=== PATIENT | female | born 1985 | race Caucasian/White ===

== ENCOUNTER 2017-08-29 13:00 | Emergency (ER) | payer SELFPAY ==
[2017-08-29 13:05] VITALS: BMI 23.8
[2017-08-29] MEDS ORDERED: ACTIDOSE-AQUA ONE (13:07)
[2017-08-29] MEDS ORDERED: ACTIDOSE-AQUA PO ONE (13:18)
[2017-08-29 13:43] LABS: BASOPHILS # (AUTO) 0.1 X10^3/uL (0.0-0.1); BASOPHILS % (AUTO) 0.8 % (0.2-1.0); EOSINOPHILS # (AUTO) 0.3 x10^3/uL (0.0-0.2); EOSINOPHILS % (AUTO) 3.5 % (0.9-2.9); HEMATOCRIT 39.7 % (36.0-47.0); HEMOGLOBIN 13.7 g/dL (12.0-16.0); LYMPHOCYTES # (AUTO) 1.8 X10^3/uL (1.3-2.9); LYMPHOCYTES % (AUTO) 19.3 % (21.0-51.0); MEAN CORPUSCULAR HEMOGLOBIN 30.3 pg (27.0-34.0); MEAN CORPUSCULAR HGB CONC 34.6 g/dL (33.0-35.0); MEAN CORPUSCULAR VOLUME 87.8 fL (80.0-100.0); MEAN PLATELET VOLUME 7.9 fL (7.4-11.0); MONOCYTES # (AUTO) 0.7 x10^3/uL (0.3-0.8); MONOCYTES % (AUTO) 7.1 % (0.0-13.0); NEUTROPHILS # (AUTO) 6.4 x10^3/uL (2.2-4.8); NEUTROPHILS % (AUTO) 69.3 % (42.0-75.0); PLATELET COUNT 294 X10^3/uL (150.0-450.0); RED BLOOD COUNT 4.52 X10^6/uL (3.5-5.4); RED CELL DISTRIBUTION WIDTH 13.8 % (11.6-16.5); WHITE BLOOD COUNT 9.2 X10^3/uL (3.6-10.0)
[2017-08-29 13:54] LABS: ALANINE AMINOTRANSFERASE 54 Units/L (12-78); ALBUMIN 3.5 g/dL (3.4-5.0); ALKALINE PHOSPHATASE 71 Units/L (46-116); ASPARTATE AMINO TRANSFERASE 56 Units/L (15-37); BLOOD UREA NITROGEN 5 mg/dL (7-18); CALCIUM 8.7 mg/dL (8.5-10.1); CARBON DIOXIDE 24.3 mmol/L (21-32); CHLORIDE 103 mmol/L (98-107); COR NA(FOR HYPERGLY) 140 mmol/L (136-145); CREATININE 0.86 mg/dL (0.55-1.02); SODIUM 138 mmol/L (136-145); TOTAL PROTEIN 8.4 g/dL (6.4-8.2); eGFR BLACK RACES > 60 (>60); eGFR NON BLACK RACES > 60 (>60)
[2017-08-29] MEDS ORDERED: NS 1000 ML 1,000 ML ONE ×2 (13:56→15:26)
[2017-08-29 14:03] LABS: HCG,QUANTITATIVE 1 mIU/mL (0-6); SALICYLATE 3.4 mg/dL (2.8-20)
--- NOTE | 2017-08-29 14:13 | RAD ---
Exam: Portable chest 08/29/2017 at 1:55 p.m. History: 32-year-old female with medication over dose Comparison: Previous chest radiograph from 03/29/2016. Findings: Heart size and pulmonary vasculature are normal. Lungs are clear with no infiltrate or sign ificant effusion on either side. Bony thorax is unremarkable as well. Impression: No acute cardiopulmonary abnormality is seen on this exam. Reported By:
--- NOTE | 2017-08-29 14:58 | DR.GENAD ---
HPI - PCP Primary Care Physician: none - Complaint/Symptoms Chief Complaint Doctors Comments: Patient presents to the ED via EMS s/p ingestion of ~20+ clonidine tablets 0.1mg (her ronny medication). She states that she is an addict and IV drug user and is tired, she want to kill herself. She states that yesterday she shot up with emma her drug of choice (easily gotten on streets) She admits to have been in different detox centers several times but always gets suicidal thoughts. She states that she "does not want to be here". She lives with her eight year child and two of her children live with her grandparents. She reports that she has always had thoughts to kill herself since a young child. 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 - Family History History of Family Medical Conditions: No - Social History Does patient currently use any type of tobacco product: Yes Have you used tobacco products in the last 12 months: Yes Type of Tobacco Use: Cigarettes How many years tobacco product used: 10 Does any household member use tobacco: No Alcohol Use: None Do you use any recreational Drugs:: Yes (emma) Lives With: Family Lives Where: Home - infectious screening In the last 2 months have you had wt loss of >10#?: NO Have you had fever, night sweats or hemotysis?: No Have you traveled outside the country in the last 6 months?: No Isolation: Standard ROS - Review of Systems Constitutional: No Symptoms Reported Eyes: No Symptoms Reported ENTM: No Symptoms Reported Respiratoy: No Symptoms Reported Cardiovascular: No Symptoms Reported Gastrointestinal/Abdominal: No Symptoms Reported Genitourinary: No Symptoms Reported Neurological: Depressed Musculoskeletal: No Symptoms Reported Integumentary: No Symptoms Reported Hematologic/Lymphatic: No Symptoms Reported Endocrine: No Symptoms Reported Psychiatric: No Symptoms Reported All Other Systems: Reviewed and Negative PE - Vital Signs Vitals: Temperature 97.8 F Pulse Rate [Right Brachial] 58 Pulse Rate 58 Respiratory Rate 16 Blood Pressure [Right Arm] 132/74 Blood Pressure [Left Arm] 153/79 Blood Pressure 157/97 O2 Sat by Pulse Oximetry 99 - General Limitations: No Limitations General Appearance: Alert - Head Head Exam: Normal Inspection, Atraumatic - Eyes Eye exam: Normal Appearance, PERRL, EOMI - ENT ENT Exam: Normal Exam External Ear Exam: Normal External Inspection TM/Canal Exam: Bilateral Normal Nose Exam: Normal Nose Exam Mouth Exam: Normal Inspection Throat Exam: Normal Inspection - Neck Neck Exam: Normal Inspection - Chest Chest Inspection: Normal Inspection - Respiratory Respiratory Exam: Normal Lung Sounds Bilat Respiratory Exam: Bilateral Clear to Auscultation - Cardiovascular Cardiovascular Exam: Regular Rate, Bradycardia - Abdominal Exam Abdominal Exam: Normal Inspection Abdominal Tenderness: negative: RUQ, RLQ, LUQ, LLQ, Epigastrium, Suprapubic, Diffuse, Mild, Moderate, Severe, Other - Extremities Extremities Exam: Normal Inspection, Full ROM - Back Back Exam: Normal Inspection - Neurologic Neurological Exam: Alert, Oriented X3, CN II-XII Intact - Psychiatric Psychiatric Exam: Normal Affect - Skin Skin Exam: Warm, Dry, Intact Course - Reevaluation 1st: Improved ROR - Labs Reviewed Result Diagrams: 08/29/17 13:31 08/29/17 13:31 Laboratory: WBC 9.2 X10^3/uL (3.6-10.0) 08/29/17 13:31 RBC 4.52 X10^6/uL (3.5-5.4) 08/29/17 13:31 Hgb 13.7 g/dL (12.0-16.0) 08/29/17 13:31 Hct 39.7 % (36.0-47.0) 08/29/17 13:31 MCV 87.8 fL (80.0-100.0) 08/29/17 13:31 MCH 30.3 pg (27.0-34.0) 08/29/17 13:31 MCHC 34.6 g/dL (33.0-35.0) 08/29/17 13:31 RDW 13.8 % (11.6-16.5) 08/29/17 13:31 Plt Count 294 X10^3/uL (150.0-450.0) 08/29/17 13:31 MPV 7.9 fL (7.4-11.0) 08/29/17 13:31 Neut % (Auto) 69.3 % (42.0-75.0) 08/29/17 13:31 Lymph % (Auto) 19.3 % (21.0-51.0) L 08/29/17 13:31 [place] % (Auto) 7.1 % (0.0-13.0) 08/29/17 13:31 Eos % (Auto) 3.5 % (0.9-2.9) H 08/29/17 13:31 Baso % (Auto) 0.8 % (0.2-1.0) 08/29/17 13:31 Neut # (Auto) 6.4 x10^3/uL (2.2-4.8) H 08/29/17 13:31 Lymph # (Auto) 1.8 X10^3/uL (1.3-2.9) 08/29/17 13:31 [place] # (Auto) 0.7 x10^3/uL (0.3-0.8) 08/29/17 13:31 Eos # (Auto) 0.3 x10^3/uL (0.0-0.2) H 08/29/17 13:31 Baso # (Auto) 0.1 X10^3/uL (0.0-0.1) 08/29/17 13:31 Absolute Nucleated RBC 0.0 /100WBC 08/29/17 13:31 Sodium 138 mmol/L (136-145) 08/29/17 13:31 Corrected Sodium 140 mmol/L (136-145) 08/29/17 13:31 Potassium 3.7 mmol/L (3.5-5.1) 08/29/17 13:31 Chloride 103 mmol/L (98-107) 08/29/17 13:31 Carbon Dioxide 24.3 mmol/L (21-32) 08/29/17 13:31 BUN 5 mg/dL (7-18) L 08/29/17 13:31 Creatinine 0.86 mg/dL (0.55-1.02) 08/29/17 13:31 Est GFR (MDRD) Af Amer > 60 (>60) 08/29/17 13:31 Est GFR (MDRD) Non-Af > 60 (>60) 08/29/17 13:31 Glucose 177 mg/dL (65-99) H 08/29/17 13:31 Calcium 8.7 mg/dL (8.5-10.1) 08/29/17 13:31 Corrected Calcium TNP 08/29/17 13:31 Total Bilirubin 0.30 mg/dL (0.2-1.0) 08/29/17 13:31 AST 56 Units/L (15-37) H 08/29/17 13:31 ALT 54 Units/L (12-78) 08/29/17 13:31 Alkaline Phosphatase 71 Units/L (46-116) 08/29/17 13:31 Total Protein 8.4 g/dL (6.4-8.2) H 08/29/17 13:31 Albumin 3.5 g/dL (3.4-5.0) 08/29/17 13:31 Globulin 4.9 g/dL (2.5-4.5) H 08/29/17 13:31 Albumin/Globulin Ratio 0.7 Ratio (1.1-2.1) L 08/29/17 13:31 HCG, Quant 1 mIU/mL (0-6) 08/29/17 13:31 Specimen Type Random urine 08/29/17 15:18 Urine Color Yellow (YELLOW) 08/29/17 15:18 Urine Appearance Clear (CLEAR) 08/29/17 15:18 Urine pH 7.0 (5.0 - 8.0) 08/29/17 15:18 Ur Specific [place] 1.010 (1.000-1.030) 08/29/17 15:18 Urine Protein Negative (NEGATIVE) 08/29/17 15:18 Urine Glucose (UA) Negative (NEGATIVE) 08/29/17 15:18 Urine Ketones Negative (NEGATIVE) 08/29/17 15:18 Urine Occult Blood Negative (NEGATIVE) 08/29/17 15:18 Urine Nitrite Negative (NEGATIVE) 08/29/17 15:18 Urine Bilirubin Negative (NEGATIVE) 08/29/17 15:18 Urine Urobilinogen Normal (NORMAL) 08/29/17 15:18 Ur Leukocyte Esterase Negative (NEGATIVE) 08/29/17 15:18 Salicylates 3.3 mg/dL (2.8-20) 08/29/17 17:25 Urine Opiates Screen Negative (NEG=<300) 08/29/17 15:18 Urine Methadone Screen Negative (NEG=<300) 08/29/17 15:18 Acetaminophen 0.0 ug/mL (10-30) L 08/29/17 17:25 Ur Barbiturates Screen Negative (NEG=<200) 08/29/17 15:18 Ur Phencyclidine Scrn Negative (NEG=<25) 08/29/17 15:18 Ur Amphetamines Screen Negative (NEG=<1000) 08/29/17 15:18 U Benzodiazepines Scrn Negative (NEG=<200) 08/29/17 15:18 Urine Cocaine Screen Negative (NEG=<300) 08/29/17 15:18 U Marijuana (THC) Screen Negative (NEG=<50) 08/29/17 15:18 Ethyl Alcohol mg/dL < 3 mg/dL (0-19.9) 08/29/17 13:31 - XRAY XRAY Interpreted by: Radiologist (Chest: No acute cardiopulmonary disease) - Diagnosis Discharge Problem: Suicidal behavior with attempted self-injury - Discharge Plan Condition: Stable - Follow ups/Referrals Follow ups/Referrals: NFD,None [Primary Care Provider] - 3 days - Instructions
[2017-08-29 15:28] LABS: BILIRUBIN,URINE NEGATIVE (NEGATIVE); BLOOD/HEMOGLOBIN,URINE NEGATIVE (NEGATIVE); GLUCOSE, URINE NEGATIVE (NEGATIVE); KETONES,URINE NEGATIVE (NEGATIVE); LEUKOCYTE ESTERASE ,URINE NEGATIVE (NEGATIVE); NITRITES,URINE NEGATIVE (NEGATIVE); PROTEIN,URINE NEGATIVE (NEGATIVE); UROBILINOGEN,URINE NORMAL (NORMAL)
[2017-08-29 15:39] LABS: APPEARANCE,URINE CLEAR (CLEAR); COLOR,URINE YELLOW (YELLOW)
[2017-08-29] MEDS ORDERED: ZOFRAN INJ 4 MG VIAL ONE ×2 (17:43→19:32)
[2017-08-29] MEDS ORDERED: ZOFRAN INJ 4 MG VIAL IVP ONE ×2 (17:43→19:30)
[2017-08-29 17:48] LABS: SALICYLATE 3.3 mg/dL (2.8-20)
[2017-08-30 07:29] VITALS: BP 115/67
== END 2017-08-30 08:57 | disposition short-term general hospital (02) ==
LOC: ER 13:21
DX: T14.91XA Suicide attempt, initial encounter (principal); T46.5X2A Poisoning by other antihypertensive drugs, intentional self-harm, initial encounter
CPT/HCPCS: 36415; 71045; 80053; 80307; 81003; 84702; 85025; 93005; 93010; 96365; 96367; 96374; 96375; 99284; 99285; A4222; G0434; G6038; G6039; G6040; J2405